=== PATIENT | male | born 1960 | race African-American/Black ===

== ENCOUNTER 2020-08-17 09:51 | Emergency (ER) | payer OTHER ==
[~2020-08-17] VITALS: Ht 182.9 cm; Wt 118.6 kg
[~2020-08-17 09:51] MED LIST: AMLO10TA; AMLO10TA PO; BABY81CH; CATA0.2T; DIOV160T5; DIOV40TA PO; HYDR12.55 PO; IBUPOTC PO; IMDU60TA; LIPI20TA PO; NEUR100C PO; NICO21DI4; TYLE325T5 PO; ZEBE5TAB PO; ZOCO40TA
[2020-08-17] MEDS ORDERED: predniSONE 20 MG TAB PO ONE (10:45)
[2020-08-17] MEDS ORDERED: PRED20TA PO (11:50)
[2020-08-17] MEDS ORDERED: AMLO1TAB25 PO (11:50)
[2020-08-17] MEDS ORDERED: HYDR12.55 PO (11:50)
[2020-08-17 12:31] VITALS: BP 169/91
== END 2020-08-17 12:32 | disposition home or self-care (01) ==
LOC: M ED 09:51
DX: I10 Essential (primary) hypertension (principal); M10.071 Idiopathic gout, right ankle and foot; E11.9 Type 2 diabetes mellitus without complications; F17.200 Nicotine dependence, unspecified, uncomplicated; Z79.899 Other long term (current) drug therapy

== ENCOUNTER → 2020-09-19 | Outpatient (CLI) | payer OTHER ==
[~2020-09-19] MED LIST changes: +AMLO1TAB25 PO; +PRED20TA PO
[2020-09-19 12:32] LABS: HEMATOCRIT 40.2 % (42.0-52.0); HEMOGLOBIN 12.9 g/dl (13.5-17.5); MEAN CORPUSCULAR HEMOGLOBIN 27.1 pg (27.0-33.0); MEAN CORPUSCULAR HGB CONC 32.1 g/dl (32.0-36.5); MEAN CORPUSCULAR VOLUME 84.5 fl (80.0-96.0); PLATELET COUNT, AUTOMATED 262 10^3/uL (150-450); RED BLOOD COUNT 4.76 10^6/uL (4.30-6.10); WHITE BLOOD COUNT 4.3 10^3/uL (4.0-10.0)
[2020-09-19 13:15] LABS: ALBUMIN 4.3 GM/DL (3.2-5.2); ALT/SGPT 20 U/L (12-78); BILIRUBIN,TOTAL 0.3 MG/DL (0.2-1.0); BLOOD UREA NITROGEN 16 MG/DL (7-18); CALCIUM LEVEL 9.4 MG/DL (8.5-10.1); CARBON DIOXIDE LEVEL 28 MEQ/L (21-32); CHLORIDE LEVEL 105 MEQ/L (98-107); CHOLESTEROL LEVEL 241 MG/DL (<200); CHOLESTEROL RISK RATIO 4.462 (<5); CREATININE FOR GFR 1.36 MG/DL (0.70-1.30); GLOMERULAR FILTRATION RATE > 60.0 (>56); GLUCOSE, FASTING 97 MG/DL (70-100); HDL CHOLESTEROL 54 MG/DL (>40); LDL CHOLESTEROL 169 MG/DL (<100); NON-HDL-C 187 MG/DL; POTASSIUM SERUM 4.1 MEQ/L (3.5-5.1); PROSTATIC SPECIFIC AG MONITOR 0.64 NG/ML (< 4.00); SODIUM LEVEL 139 MEQ/L (136-145); TOTAL PROTEIN 7.5 GM/DL (6.4-8.2); TRIGLYCERIDES LEVEL 92 MG/DL (<150); URIC ACID 7.7 MG/DL (3.5-7.2)
[2020-09-19 13:26] LABS: HEMOGLOBIN A1c 6.2 %
[2020-09-19 13:50] LABS: HEPATITIS C VIRUS ABY INDEX 0.1 INDEX (<0.8)
--- NOTE | 2020-09-19 14:12 | ECGEPIP ---
[facility] Test Date: 2020-09-19 Pat Name: ISRRAEL ELMORE Department: Room: - Gender: Male [employer]: : [id number] Requested By: DEBORAH CONTRERAS Order Number: [id number] Reading MD: Hank Montalvo Measurements Intervals Lolita Rate: 74 P: TN: 0 QRS: -3 QRSD: 105 T: 164 QT: 417 QTc: 464 Interpretive Statements ATRIAL FIBRILLATION MINIMAL VOLTAGE CRITERIA FOR LVH, CONSIDER NORMAL VARIANT ST DEVIATION AND MARKED T-WAVE ABNORMALITY, CONSIDER ANTEROLATERAL ISCHEMIA Previous tracing done 03-02-16 showed sinus rhythm Electronically Signed on 09-19-2020 14:12:30 EST by Hank Montalvo
== END ==
LOC: M LAB 10:54
PROVIDERS: ATTEND Family Medicine
DX: I49.9 Cardiac arrhythmia, unspecified (principal); R94.31 Abnormal electrocardiogram [ECG] [EKG]

== ENCOUNTER → 2020-12-25 | Outpatient (CLI) | payer OTHER ==
[2020-12-25 16:19] LABS: MALB URINE SIEMENS 6.6 MG/L; MAU/CREAT RATIO 4.2 MCG/MG (0.0-30.0)
[2020-12-25 16:22] LABS: BLOOD UREA NITROGEN 17 MG/DL (7-18); CALCIUM LEVEL 9.5 MG/DL (8.5-10.1); CARBON DIOXIDE LEVEL 28 MEQ/L (21-32); CHLORIDE LEVEL 108 MEQ/L (98-107); CREATININE FOR GFR 1.43 MG/DL (0.70-1.30); GLOMERULAR FILTRATION RATE > 60.0 (>56); GLUCOSE, FASTING 96 MG/DL (70-100); SODIUM LEVEL 143 MEQ/L (136-145); THYROID STIMULATING HORMONE 0.982 uIU/ML (0.358-3.740); THYROXINE (T4) 6.2 UG/DL (4.5-12.0); URIC ACID 6.6 MG/DL (3.5-7.2)
== END ==
LOC: M LAB 15:11
PROVIDERS: ATTEND Internal Medicine Cardiovascular Disease
DX: I10 Essential (primary) hypertension (principal)

== ENCOUNTER → 2021-05-23 | Outpatient (CLI) | payer OTHER ==
--- NOTE | 2021-05-24 15:23 | SLEEPHOME ---
DATE: 05/23/2021 ORDERED BY: Chantell Chairez Diagnostic home sleep testing was performed due to concern for the obstructive sleep apnea syndrome in this patient with frequent nocturnal awakenings and daytime fatigue. For testing, a nocturnal T3 respiratory monitoring device was used. Continuous record was made of pulse, oxygen saturation, air flow, chest and abdominal strain, and body position. There was 9 hours and 59 minutes of data reviewed. There was 4 hours and 3 minutes marked as time in bed. During the interval marked time in bed, there were 147 respiratory events identified of 10 seconds in duration or greater for a respiratory event index of 36.2. The events were primarily obstructive. Thirty-three mixed and central apneas were noted. Baseline pulse rate 73. Pulse rate ranged 43-94. Baseline saturation was 94%. Saturations fell to 81%. Testing was performed in both the supine and nonsupine positions. IMPRESSION: Abnormal home sleep testing with repetitive respiratory events and oxygen desaturations to 81% with a respiratory event index of 36.3 per hour is consistent with the obstructive sleep apnea syndrome. RECOMMENDATION: The patient should be encouraged to undergo formal sleep evaluation.
== END ==
LOC: M SLEEP HO 11:20
PROVIDERS: ATTEND Nurse Practitioner Family
DX: R06.83 Snoring (principal)

== ENCOUNTER → 2021-06-19 | Outpatient (CLI) | payer OTHER ==
[2021-06-19 13:24] LABS: HEMATOCRIT 39.6 % (42.0-52.0); HEMOGLOBIN 12.8 g/dl (13.5-17.5); MEAN CORPUSCULAR HEMOGLOBIN 26.9 pg (27.0-33.0); MEAN CORPUSCULAR HGB CONC 32.3 g/dl (32.0-36.5); MEAN CORPUSCULAR VOLUME 83.2 fl (80.0-96.0); PLATELET COUNT, AUTOMATED 215 10^3/uL (150-450); RED BLOOD COUNT 4.76 10^6/uL (4.30-6.10); WHITE BLOOD COUNT 4.2 10^3/uL (4.0-10.0)
[2021-06-19 13:46] LABS: ALBUMIN 4.2 GM/DL (3.2-5.2); ALT/SGPT 32 U/L (12-78); BILIRUBIN,TOTAL 0.5 MG/DL (0.2-1.0); BLOOD UREA NITROGEN 16 MG/DL (7-18); CALCIUM LEVEL 9.3 MG/DL (8.5-10.1); CARBON DIOXIDE LEVEL 29 MEQ/L (21-32); CHLORIDE LEVEL 108 MEQ/L (98-107); CHOLESTEROL LEVEL 173 MG/DL (<200); CHOLESTEROL RISK RATIO 3.604 (<5); CREATININE FOR GFR 1.24 MG/DL (0.70-1.30); GLOMERULAR FILTRATION RATE > 60.0 (>56); GLUCOSE, FASTING 102 MG/DL (70-100); HDL CHOLESTEROL 48 MG/DL (>40); LDL CHOLESTEROL 109 MG/DL (<100); NON-HDL-C 125 MG/DL; POTASSIUM SERUM 4.1 MEQ/L (3.5-5.1); PROSTATIC SPECIFIC AG MONITOR 0.35 NG/ML (< 4.00); RHEUMATOID FACTOR QUANT < 10.0 IU/ML (<15.0); SODIUM LEVEL 141 MEQ/L (136-145); TOTAL PROTEIN 7.6 GM/DL (6.4-8.2); TRIGLYCERIDES LEVEL 81 MG/DL (<150); URIC ACID 6.7 MG/DL (3.5-7.2)
[2021-06-19 13:52] LABS: HEMOGLOBIN A1c 6.6 %
[2021-06-19 14:03] LABS: ERYTHROCYTE SEDIMENTATION RATE 12 mm/hr (0-20)
[2021-06-21 00:10] LABS: ANTINUCLEAR ANTIBODIES DIRECT Negative (Negative); CYCLIC CITRULLINATED PEPTIDE 5 units (0-19)
== END ==
LOC: M LAB 11:39
PROVIDERS: ATTEND Family Medicine
DX: M13.0 Polyarthritis, unspecified (principal); E78.5 Hyperlipidemia, unspecified; M10.9 Gout, unspecified; R73.9 Hyperglycemia, unspecified; I10 Essential (primary) hypertension; Z12.5 Encounter for screening for malignant neoplasm of prostate

== ENCOUNTER → 2021-08-01 | Outpatient (CLI) | payer OTHER ==
[~2021-08-01] MED LIST changes: +PROHANCE 279.3MG/ML 5ML VIAL As Ordered ONE
--- NOTE | 2021-08-02 20:23 | REPVR ---
PROCEDURE INFORMATION: Exam: MR Head Without and With Contrast; Internal Auditory Canals Exam date and time: 08/01/2021 6:36 PM Age: 60 years old Clinical indication: Right-sided hearing loss. History of pituitary macroadenoma status post transsphenoidal resection. TECHNIQUE: Imaging protocol: MR of the head without and with intravenous contrast. Exam focused on the internal auditory canals. Contrast material: PROHANCE; Contrast volume: 20 ml; Contrast route: INTRAVENOUS (IV); COMPARISON: MRI-Brain W/CON 09/20/2015 2:16 PM FINDINGS: Brain: Small scattered nonspecific T2/FLAIR hyperintensities of the periventricular and deep subcortical white matter, most likely secondary to chronic small vessel ischemic change. No intracranial hemorrhage or extra-axial fluid collection. No evidence of mass effect or midline shift. No restricted diffusion to suggest acute infarct. Chronic postoperative changes in the right sphenoid sinus, compatible with transsphenoidal resection of pituitary mass. No evidence of recurrent pituitary/sellar lesion. Normal appearance of cranial nerves on thin T2 sequences. Cerebellopontine angle cisterns are clear. Meckel's caves are clear. Internal auditory canals are clear. No abnormal intracranial enhancement. Ventricles: No ventriculomegaly. Mastoid air cells: Unremarkable. No effusions. Bones/joints: Unremarkable. IMPRESSION: 1. No acute intracranial pathology. 2. Chronic findings, as above. Electronically signed by: Jose Haque On 08/02/2021 20:22:53 PM
== END ==
LOC: M RAD 17:18
PROVIDERS: ATTEND Family Medicine
DX: H91.91 Unspecified hearing loss, right ear (principal)
CPT/HCPCS: 70553; A9576

== ENCOUNTER → 2022-04-08 | Outpatient (CLI) | payer OTHER ==
[~2022-04-08] MED LIST changes: +ATOR40TA75 PO; +BAYE81TA7 PO; +CETI-24 PO; +HYDR-3490 PO; +LOSA100T45 PO; +OMEP40CA4 PO; -PROHANCE 279.3MG/ML 5ML VIAL As Ordered ONE; +VERA120C3 PO
== END ==
LOC: M LABSMTC 09:43
PROVIDERS: ATTEND Anesthesiology
DX: Z01.818 Encounter for other preprocedural examination (principal); Z11.52 Encounter for screening for COVID-19

== ENCOUNTER 2022-04-12 08:48 | Day surgery (SDC) | payer OTHER ==
[~2022-04-12] VITALS: Ht 182.9 cm; Wt 124.7 kg
[~2022-04-12 08:48] MED LIST changes: +NS 1,000 ML IV ONE
[2022-04-12] MEDS ORDERED: LIDOCAINE 2% 100MG/5ML SDV (FOR ANES.) As Ordered ONE (09:47)
[2022-04-12] MEDS ORDERED: propofoL 200 MG/20 ML VIAL As Ordered ONE (09:47)
[2022-04-12 10:30] VITALS: BP 129/76
== END 2022-04-12 10:55 | disposition home or self-care (01) ==
LOC: M OPP 08:48
PROVIDERS: ATTEND Internal Medicine Gastroenterology
DX: Z12.11 Encounter for screening for malignant neoplasm of colon (principal); K64.0 First degree hemorrhoids; G47.33 Obstructive sleep apnea (adult) (pediatric); Z99.89 Dependence on other enabling machines and devices; Z79.02 Long term (current) use of antithrombotics/antiplatelets; Z79.82 Long term (current) use of aspirin; Z79.899 Other long term (current) drug therapy; F17.210 Nicotine dependence, cigarettes, uncomplicated

== ENCOUNTER → 2022-07-14 | Outpatient (CLI) | payer OTHER ==
[~2022-07-14] MED LIST changes: -NS 1,000 ML IV ONE
== END ==
LOC: M RAD 11:08
PROVIDERS: ATTEND Physician Assistant
DX: M79.674 Pain in right toe(s) (principal)

== ENCOUNTER → 2022-08-27 | Outpatient (CLI) | payer OTHER ==
[2022-08-27 11:20] LABS: BLOOD UREA NITROGEN 24 MG/DL (7-18); CALCIUM LEVEL 8.7 MG/DL (8.8-10.2); CARBON DIOXIDE LEVEL 28 MEQ/L (21-32); CHLORIDE LEVEL 107 MEQ/L (98-107); CREATININE FOR GFR 1.51 MG/DL (0.70-1.30); GLOMERULAR FILTRATION RATE > 60.0 (>49); GLUCOSE, FASTING 171 MG/DL (70-100); POTASSIUM SERUM 4.3 MEQ/L (3.5-5.1); SODIUM LEVEL 140 MEQ/L (136-145); URIC ACID 8.4 MG/DL (3.5-7.2)
== END ==
LOC: M LAB 10:14
PROVIDERS: ATTEND Family Medicine
DX: M10.9 Gout, unspecified (principal)

== ENCOUNTER → 2022-11-19 | Outpatient (CLI) | payer OTHER ==
[2022-11-19 10:58] LABS: BASO % 0.7 % (0.0-1.0); EOS # 0.1 10^3/uL (0.0-0.5); EOS % 2.2 % (0.0-3.0); HEMOGLOBIN 12.1 g/dl (13.5-17.5); LYMPH # 2.3 10^3/uL (1.5-5.0); LYMPH % 39.1 % (24.0-44.0); MEAN CORPUSCULAR HEMOGLOBIN 26.7 pg (27.0-33.0); MEAN CORPUSCULAR HGB CONC 31.8 g/dl (32.0-36.5); MEAN CORPUSCULAR VOLUME 83.9 fl (80.0-96.0); MONO # 0.4 10^3/uL (0.0-0.8); MONO % 6.5 % (2.0-8.0); NEUTROPHILS % 51.3 % (36.0-66.0); PLATELET COUNT, AUTOMATED 229 10^3/uL (150-450); RED BLOOD COUNT 4.53 10^6/uL (4.30-6.10); WHITE BLOOD COUNT 5.9 10^3/uL (4.0-10.0)
[2022-11-19 11:27] LABS: HEMOGLOBIN A1c 6.6 % (4.0-6.0)
[2022-11-19 11:28] LABS: PROSTATIC SPECIFIC AG MONITOR 0.21 NG/ML (< 4.00)
[2022-11-19 11:30] LABS: ALKALINE PHOSPHATASE 69 U/L (46-116); ALT/SGPT 26 U/L (7.0-40); AST/SGOT 25 U/L (<34); BILIRUBIN,TOTAL 0.5 MG/DL (0.3-1.2); BLOOD UREA NITROGEN 18 MG/DL (9-23); CALCIUM LEVEL 9.5 MG/DL (8.3-10.6); CARBON DIOXIDE LEVEL 25 MMOL/L (20-31); CHLORIDE LEVEL 105 MMOL/L (98-107); CHOLESTEROL LEVEL 145 MG/DL (<200); CHOLESTEROL RISK RATIO 3.65 (<5); CREATININE FOR GFR 1.18 MG/DL (0.70-1.30); GLOMERULAR FILTRATION RATE > 60.0 (>49); GLUCOSE, FASTING 130 MG/DL (74-106); HDL CHOLESTEROL 39.7 MG/DL (>40); LDL CHOLESTEROL 91.1 MG/DL (<100); NON-HDL-C 105 MG/DL; POTASSIUM SERUM 4.2 MMOL/L (3.5-5.1); SODIUM LEVEL 142 MMOL/L (136-145); TRIGLYCERIDES LEVEL 71 MG/DL (<150)
== END ==
LOC: M LAB 10:25
PROVIDERS: ATTEND Family Medicine
DX: M10.9 Gout, unspecified (principal); Z12.5 Encounter for screening for malignant neoplasm of prostate; E11.9 Type 2 diabetes mellitus without complications

== ENCOUNTER → 2023-03-06 | Outpatient (CLI) | payer OTHER ==
[~2023-03-06] MED LIST changes: -LOSA100T45 PO; +LOSA100T46 PO
== END ==
LOC: M RAD 07:07
PROVIDERS: ATTEND Family Medicine
DX: I70.0 Atherosclerosis of aorta (principal); F17.210 Nicotine dependence, cigarettes, uncomplicated; I25.10 Atherosclerotic heart disease of native coronary artery without angina pectoris

== ENCOUNTER → 2024-01-23 | Outpatient (CLI) | payer OTHER | LOC: M RAD 10:33 → M LAB 10:33 | PROVIDERS: ATTEND Family Medicine | DX: R05.9 Cough, unspecified (principal) ==

== ENCOUNTER → 2024-06-05 | Outpatient (CLI) | payer OTHER ==
[2024-06-05 10:40] LABS: BASO # 0.1 10^3/uL (0.0-0.2); BASO % 1.1 % (0.0-1.0); EOS # 0.2 10^3/uL (0.0-0.5); EOS % 5.3 % (0.0-3.0); HEMATOCRIT 39.3 % (42.0-52.0); HEMOGLOBIN 12.7 g/dl (13.5-17.5); LYMPH # 1.7 10^3/uL (1.5-5.0); LYMPH % 39.3 % (24.0-44.0); MEAN CORPUSCULAR HEMOGLOBIN 26.3 pg (27.0-33.0); MEAN CORPUSCULAR HGB CONC 32.3 g/dl (32.0-36.5); MEAN CORPUSCULAR VOLUME 81.5 fl (80.0-96.0); MONO # 0.3 10^3/uL (0.0-0.8); MONO % 7.3 % (2.0-8.0); NEUTROPHILS # 2.1 10^3/uL (1.5-8.5); NEUTROPHILS % 46.8 % (36.0-66.0); PLATELET COUNT, AUTOMATED 184 10^3/uL (150-450); RED BLOOD COUNT 4.82 10^6/uL (4.30-6.10); WHITE BLOOD COUNT 4.4 10^3/uL (4.0-10.0)
[2024-06-05 11:05] LABS: LDH LACTATE DEHYDROGENASE 199 U/L (120-246); THYROXINE (T4) 3.8 UG/DL (4.5-10.9)
[2024-06-05 11:06] LABS: ALBUMIN 3.8 G/DL (3.2-5.2); ALKALINE PHOSPHATASE 75 U/L (46-116); ALT/SGPT 29 U/L (7.0-40); AST/SGOT 16 U/L (<34); BILIRUBIN,DIRECT < 0.1 MG/DL (<0.4); BILIRUBIN,TOTAL 0.3 MG/DL (0.3-1.2); BLOOD UREA NITROGEN 14 MG/DL (9-23); CALCIUM LEVEL 9.2 MG/DL (8.3-10.6); CARBON DIOXIDE LEVEL 28 MMOL/L (20-31); CHLORIDE LEVEL 105 MMOL/L (98-107); CHOLESTEROL LEVEL 266 MG/DL (<200); CHOLESTEROL RISK RATIO 7.16 (<5); CREATININE FOR GFR 1.12 MG/DL (0.70-1.30); GLOMERULAR FILTRATION RATE > 60.0 (>49); GLUCOSE, FASTING 229 MG/DL (74-106); HDL CHOLESTEROL 37.1 MG/DL (>40); LDL CHOLESTEROL 204.3 MG/DL (<100); NON-HDL-C 228.9 MG/DL; POTASSIUM SERUM 4.3 MMOL/L (3.5-5.1); SODIUM LEVEL 137 MMOL/L (136-145); THYROID STIMULATING HORMONE 1.048 uIU/ML (0.55-4.78); TRIGLYCERIDES LEVEL 123 MG/DL (<150)
[2024-06-05 11:08] LABS: FREE T4 0.61 NG/DL (0.89-1.76)
== END ==
LOC: M LAB 09:13
PROVIDERS: ATTEND Internal Medicine Cardiovascular Disease
DX: R00.2 Palpitations (principal); R73.09 Other abnormal glucose; Z79.899 Other long term (current) drug therapy

== ENCOUNTER → 2024-07-14 | Outpatient (CLI) | payer OTHER ==
[~2024-07-14] MED LIST changes: +E-Z-GAS II EFFERVESCENT PACKET (SODIUM BICARB./CITRIC ACID/SIMETHICONE) As Ordered ONE; +E-Z-HD 98% w/w 340GM SUSP BTL As Ordered ONE; +E-Z-PAQUE 96% w/w SUSP 176GM BTL As Ordered ONE
== END ==
LOC: M RAD 08:21
PROVIDERS: ATTEND Family Medicine
DX: R13.10 Dysphagia, unspecified (principal); K22.89 Other specified disease of esophagus; K21.9 Gastro-esophageal reflux disease without esophagitis

== ENCOUNTER → 2024-08-24 | Outpatient (CLI) | payer OTHER ==
[~2024-08-24] MED LIST changes: -E-Z-GAS II EFFERVESCENT PACKET (SODIUM BICARB./CITRIC ACID/SIMETHICONE) As Ordered ONE; -E-Z-HD 98% w/w 340GM SUSP BTL As Ordered ONE; -E-Z-PAQUE 96% w/w SUSP 176GM BTL As Ordered ONE
[2024-08-24 13:48] LABS: LDH LACTATE DEHYDROGENASE 182 U/L (120-246)
[2024-08-24 13:49] LABS: ALKALINE PHOSPHATASE 63 U/L (46-116); ALT/SGPT 21 U/L (7.0-40); AST/SGOT 15 U/L (<34); BILIRUBIN,DIRECT < 0.1 MG/DL (<0.4); BILIRUBIN,TOTAL 0.3 MG/DL (0.3-1.2); TOTAL PROTEIN 7.3 G/DL (5.7-8.2)
[2024-08-24 13:51] LABS: FREE T4 0.86 NG/DL (0.89-1.76)
== END ==
LOC: M LAB 12:45
PROVIDERS: ATTEND Internal Medicine Cardiovascular Disease
DX: R00.2 Palpitations (principal); I48.19 Other persistent atrial fibrillation; I10 Essential (primary) hypertension

== ENCOUNTER → 2024-09-02 | Outpatient (CLI) | payer OTHER ==
[2024-09-02 15:24] LABS: BASO # 0.1 10^3/uL (0.0-0.2); BASO % 1.4 % (0.0-1.0); EOS # 0.2 10^3/uL (0.0-0.5); EOS % 3.6 % (0.0-3.0); HEMATOCRIT 38.1 % (42.0-52.0); HEMOGLOBIN 12.4 g/dl (13.5-17.5); LYMPH # 1.6 10^3/uL (1.5-5.0); LYMPH % 37.6 % (24.0-44.0); MEAN CORPUSCULAR HGB CONC 32.5 g/dl (32.0-36.5); MEAN CORPUSCULAR VOLUME 82.8 fl (80.0-96.0); MONO # 0.3 10^3/uL (0.0-0.8); MONO % 7.4 % (2.0-8.0); NEUTROPHILS # 2.1 10^3/uL (1.5-8.5); NEUTROPHILS % 49.8 % (36.0-66.0); PLATELET COUNT, AUTOMATED 258 10^3/uL (150-450); WHITE BLOOD COUNT 4.2 10^3/uL (4.0-10.0)
[2024-09-02 15:26] LABS: BLOOD UREA NITROGEN 18 MG/DL (9-23); CARBON DIOXIDE LEVEL 28 MMOL/L (20-31); CHLORIDE LEVEL 107 MMOL/L (98-107); CREATININE FOR GFR 1.42 MG/DL (0.70-1.30); GLOMERULAR FILTRATION RATE > 60.0 (>49); GLUCOSE, FASTING 81 MG/DL (74-106); POTASSIUM SERUM 4.5 MMOL/L (3.5-5.1); SODIUM LEVEL 140 MMOL/L (136-145)
== END ==
LOC: M LAB 14:09
PROVIDERS: ATTEND Internal Medicine Cardiovascular Disease
DX: I10 Essential (primary) hypertension (principal); I48.19 Other persistent atrial fibrillation; R00.2 Palpitations

== ENCOUNTER → 2024-10-21 | Outpatient (CLI) | payer OTHER ==
[~2024-10-21] MED LIST changes: +METHACHOLINE KIT (6 VIAL.NEB PREMIX) INH ONE
== END ==
LOC: M CARPUL 08:51
PROVIDERS: ATTEND Physician Assistant
DX: R06.00 Dyspnea, unspecified (principal)
CPT/HCPCS: 94070; J7674

== ENCOUNTER → 2025-01-19 | Outpatient (CLI) | payer OTHER ==
[~2025-01-19] MED LIST changes: -METHACHOLINE KIT (6 VIAL.NEB PREMIX) INH ONE; +PROHANCE 279.3MG/ML 5ML VIAL ONE
== END ==
LOC: M PLAIMG 11:10
PROVIDERS: ATTEND Family Medicine
DX: D44.3 Neoplasm of uncertain behavior of pituitary gland (principal)

== ENCOUNTER → 2025-01-25 | Outpatient (REF) | payer OTHER ==
[~2025-01-25] MED LIST changes: -PROHANCE 279.3MG/ML 5ML VIAL ONE
[2025-01-25 18:33] LABS: CALCIUM LEVEL 9.1 MG/DL (8.3-10.6); CREATININE FOR GFR 1.53 MG/DL (0.70-1.30); GLOMERULAR FILTRATION RATE 59.6 (>49); POTASSIUM SERUM 4.4 MMOL/L (3.5-5.1)
== END ==
LOC: M LABWUC 16:55
PROVIDERS: ATTEND Family Medicine
DX: D44.3 Neoplasm of uncertain behavior of pituitary gland (principal)

== ENCOUNTER → 2025-09-06 | Outpatient (CLI) | payer OTHER ==
[~2025-09-06] MED LIST changes: +AMLO-751 PO; -AMLO10TA PO; -VERA120C3 PO; +VERA120C9 PO
[2025-09-06 14:51] LABS: BASO # 0.1 10^3/uL (0.0-0.2); BASO % 0.8 % (0.0-1.0); EOS # 0.2 10^3/uL (0.0-0.5); EOS % 3.1 % (0.0-3.0); LYMPH # 2.3 10^3/uL (1.5-5.0); LYMPH % 36.6 % (24.0-44.0); MONO # 0.5 10^3/uL (0.0-0.8); MONO % 7.5 % (2.0-8.0); NEUTROPHILS # 3.2 10^3/uL (1.5-8.5); NEUTROPHILS % 50.7 % (36.0-66.0); PLATELET COUNT, AUTOMATED 274 10^3/uL (150-450)
[2025-09-06 15:13] LABS: CALCIUM LEVEL 9.3 MG/DL (8.3-10.6); CARBON DIOXIDE LEVEL 30.0 MMOL/L (20-31); CHLORIDE LEVEL 103.0 MMOL/L (98-107); CREATININE FOR GFR 1.45 MG/DL (0.70-1.30); GLOMERULAR FILTRATION RATE 54.2 (>49); POTASSIUM SERUM 4.2 MMOL/L (3.5-5.1); SODIUM LEVEL 143.0 MMOL/L (136-145)
== END ==
LOC: M LAB 13:59
PROVIDERS: ATTEND Family Medicine
DX: Z01.818 Encounter for other preprocedural examination (principal)